=== PATIENT | female | born 1985 | race Caucasian/White ===

== ENCOUNTER 2018-06-23 05:00 | Inpatient (IN) | payer BC, SELFPAY ==
[2018-06-17 09:17] VITALS: BMI 37.2
[2018-06-23] VITALS (21 sets, daily range): BP systolic 92–115; BP diastolic 41–70; PULSE 54–85; RESP 16–18; TEMP 36.1–37.1; O2SAT 95–99; BMI 37.4
[2018-06-23] MEDS: Lactated Ringers 1,000 ML 999 ML IV (05:55)
[2018-06-23 06:15] LABS: Absolute Lymphocyte Count 1.77 X10^3/ul (0.83-4.51); Absolute Neutrophil Count 7.7 X10^3/uL (2.0-7.7); Basophil# 0.02 X10^3/uL; Basophil% 0.2 % (0-1); Eosinophil# 0.11 X10^3/uL; Hematocrit 36.7 % (37-47); Hemoglobin 12.5 g/dl (12.0-15.0); Lymphocyte # 1.77 X10^3/ul (4.0); Lymphocyte % 16.8 % (19-41); Mean Corp Hgb Conc 34.1 g/gl (32-36); Mean Corpuscular Hgb 31.7 pg (27.0-32.0); Mean Corpuscular Volume 93.1 fL (81-99); Mean Platelet Vol. 9.8 fl (6.2-12.0); Monocyte# 0.93 X10^3/uL; Monocyte% 8.8 % (0-10); Neutrophil # 7.65 X10^3/uL (2.7-7.7); Neutrophil % 72.9 % (47-70); Platelet Count 196 K/mm3 (150-450); RBC Distribution Width CV 13.2 % (11.6-14.6); RBC Distribution Width SD 44.5 fl (35.1-43.9); Red Blood Count 3.94 M/mm3 (4.2-5.4); White Blood Count 10.5 K/mm3 (4.4-11.0)
[2018-06-23 06:17] LABS: POSITIVE COUNT NO; POSITIVE DIFFERENTIAL NO; POSITIVE MORPHOLOGY NO
[2018-06-23] MEDS: Lactated Ringers 1,000 ML 150 ML IV (06:57)
[2018-06-23] MEDS: Sodium Citrate/Citric Acid 30 ML UDC PO (07:43)
[2018-06-23] MEDS: Cefazolin 2 GM in 0.9% Normal Saline 100 ML IV (07:45)
[2018-06-23] MEDS: Oxytocin 30 units/NS 500 ml 30 UNITS/500 ML IV.SOLN 167 UNITS IV (08:17)
[2018-06-23] MEDS: Ketorolac 30 MG/ML Syringe IV ×3 (08:30→21:05)
--- NOTE | 2018-06-23 08:46 | OP.PCM_ITS ---
Delivery Classification: Scheduled Final AMINTA Source: US <20 weeks Indications for : Repeat Elective Description of Procedure: The patient was taken to the operating room. She was prepped and draped in the dorsal supine position with a leftward tilt. A Pfannenstiel skin incision was made approximately 2 cm above the symphysis pubis and carried through to underlying layer fascia with the scalpel. The fascia was incised incised in the midline and extended laterally with the Huynh scissors. The fascia was dissected off the rectus muscles with blunt and sharp dissection. The rectus muscles were in the midline and the peritoneum was entered bluntly. The peritoneal incision was stretched and the bladder blade was placed. The uterine incision was made in a low transverse fashion with the scalpel and extended superiorly and inferiorly with blunt dissection. The amniotic membranes were ruptured bluntly and clear amniotic fluid returned. The ' s head was brought to the incision in the flexed position and delivered without difficulty. The remainder of the was delivered with gentle traction and fundal pressure in the standard fashion. The mouth and nares were bulb suctioned. The cord was clamped and cut as the infant was stimulated. Cord clamping was delayed. The infant was handed off to the waiting nursing staff. The placenta was delivered with fundal massage and gentle traction in the standard fashion. The uterus was exteriorized and cleared of all clots and debris. The cervix was dilated with a ring forcep. The uterine incision was closed with #1 Vicryl in a running locked fashion. A second layer of the same suture was used in an imbricating fashion and the incision was examined for hemostasis. The uterus was placed back into the peritoneal cavity and hemostasis was assured. The rectus muscles were examined and any bleeding was Bovie cauterized. The parietal peritoneum and rectus muscles were closed en bloc with a running 0 Vicryl suture. The rectus fascia was examined and the bleeding was Bovie cauterized and the rectus fascia was closed with #1 PDS suture in a running standard fashion. The subcutaneous tissue was examining and any bleeding was Bovie cauterized. The subcutaneous tissue was reapproximated with 3-0 Vicryl suture. The skin was closed in a subcuticular fashion by the PERFORMANCE ANALYST with me present in the labor and delivery suite. I performed the remainder of the procedure with assistance. All sponge, lap, and needle counts were correct. The patient was taken to her room for recovery in a stable condition. Amniotic Membrane Rupture Type: Artificial Amniotic Fluid Description: Clear Placenta Disposition: [facility] Specimen(s) sent to pathology: None Drain: Carrero to straight drain Fluids Replaced: 1700cc lr Cord Entanglement: None Cord Vessel Description: 3 Vessels Esitmated Blood Loss (ml): 600 cc Infant Gender: Female (1 minute): 8 (5 minute): 8 Delayed cord clamping: Yes Pre-op Antibiotic Given: Ancef 2 grams IV x1 Complications: None - Admit VTE Documentation VTE Present on Admission: No VTE Mechan Device Prophylaxis: SCD's VTE Pharm Prophylaxis ordered?: Yes
[2018-06-23] MEDS: Lactated Ringers 1,000 ML 100 ML IV ×2 (10:08→15:18)
--- NOTE | 2018-06-23 13:15 | NURSING ---
Received report from Holli Vasquez RN. I will assume care of patient at this time.
[2018-06-23] MEDS: 0.9% Saline Lock 10 ML Syringe IV (21:05)
[2018-06-23] MEDS: Senna/Docusate Sodium 1 Tablet PO (21:05)
[2018-06-24] VITALS (8 sets, daily range): BP systolic 101–123; BP diastolic 58–71; PULSE 59–75; RESP 16–18; TEMP 36.3–36.8; O2SAT 95–98
[2018-06-24] MEDS: 0.9% Saline Lock 10 ML Syringe IV ×4 (03:03→21:29)
[2018-06-24] MEDS: Ketorolac 30 MG/ML Syringe IV ×4 (03:03→21:29)
[2018-06-24 05:15] LABS: Hematocrit 33.9 % (37-47); Hemoglobin 11.7 g/dl (12.0-15.0); Mean Corp Hgb Conc 34.5 g/gl (32-36); Mean Corpuscular Hgb 32.6 pg (27.0-32.0); Mean Corpuscular Volume 94.4 fL (81-99); Mean Platelet Vol. 9.8 fl (6.2-12.0); Platelet Count 173 K/mm3 (150-450); RBC Distribution Width CV 13.2 % (11.6-14.6); RBC Distribution Width SD 43.7 fl (35.1-43.9); Red Blood Count 3.59 M/mm3 (4.2-5.4); White Blood Count 12.1 K/mm3 (4.4-11.0)
[2018-06-24 05:26] LABS: Scan Indicated on CBC? Y/N NO
[2018-06-24] MEDS: Enoxaparin 40 MG/0.4 ML Syringe SC (06:22)
--- NOTE | 2018-06-24 08:44 | PCM.PN.OB ---
Subjective: pain well controlled, average lochia, no N/V - Physical Exam General: Alert, Cooperative, No apparent distress Abdomen: Soft, Distended, Tender - appropriately Skin: Incision - clean, dry and intact Vital Signs Temp Pulse Resp BP Pulse Ox 98 F 72 18 102/66 98 06/24/18 04:39 06/24/18 04:39 06/24/18 06:15 06/24/18 04:39 06/24/18 06:15 Oxygen Delivery Method Room Air Weight: 95.8 kg Body Mass Index (BMI) 37.4 Intake and Output for Last 24 Hours 06/22/18 06/23/18 06/24/18 23:59 23:59 23:59 Intake Total 4895 / 4895 1200 / 1200 Output Total 1700 / 1700 1999 / 1999 Balance 3195 / 3195 -800 / -800 Laboratory Tests Past 24 Hrs 06/24/18 05:00 WBC 12.1 H RBC 3.59 L Hgb 11.7 L Hct 33.9 L MCV 94.4 MCH 32.6 H MCHC 34.5 RDW 13.2 RDW Differential 43.7 Plt Count 173 MPV 9.8 Medical Necessity - Tobacco Use Smoking Status: Never smoker Assessment/Plan POD#1 doing well routine care
[2018-06-24] MEDS: Senna/Docusate Sodium 1 Tablet PO ×2 (11:40→22:37)
[2018-06-25] MEDS: Ketorolac 30 MG/ML Syringe IV (01:52)
[2018-06-25] MEDS: 0.9% Saline Lock 10 ML Syringe IV (01:52)
[2018-06-25 02:00] VITALS: BP 137/66; PULSE 16; RESP 69; TEMP 36.5; O2SAT 95
[2018-06-25] MEDS: Enoxaparin 40 MG/0.4 ML Syringe SC (06:35)
[2018-06-25 07:45] VITALS: BP 116/77; PULSE 70; RESP 16; TEMP 36.8; O2SAT 96
--- NOTE | 2018-06-25 08:16 | PCM.PN.OB ---
Subjective: pain well controlled, not taking oxycodone. +BM. Perla. regular diet. Average lochia - Physical Exam General: Alert, Cooperative, No apparent distress Vital Signs Temp Pulse Resp BP Pulse Ox 98.3 F 70 16 116/77 96 06/25/18 07:45 06/25/18 07:45 06/25/18 07:45 06/25/18 07:45 06/25/18 07:45 Oxygen Delivery Method Room Air Weight: 95.8 kg Body Mass Index (BMI) 37.4 Intake and Output for Last 24 Hours 06/23/18 06/24/18 06/25/18 23:59 23:59 23:59 Intake Total 4895 / 4895 1200 / 1200 Output Total 1700 / 1700 2400 / 2400 Balance 3195 / 3195 -1200 / -1200 Medical Necessity - Tobacco Use Smoking Status: Never smoker Assessment/Plan PPD#2 doing well ready for d/c postop instructions reviewed infant and doing well
--- NOTE | 2018-06-25 08:24 | DCINST_ITS ---
Discharge Diet: No Restrictions Discharge Activity: Return to Normal Activity, May Not Drive - for 2 weeks, May not drive while taking narcotic pain medications., May Shower, May Take a Tub Bath - in 7 days. May resume sexual activity in: 4-6 weeks Lifting Restrictions: 20 pounds Additional Activity Instructions:: Nothing in the vagina for 4-6 weeks. You may return to work/school in 6 weeks. Call your doctor if your incision/area has: Continuous Slow Oozing, Sudden Increased Bleeding, Increased Pain/ Swelling, Increased Redness, Foul Smelling Discharge Call your doctor if you observe: Fever of 101 or Higher, Using more than one pad per hour - for 2 hours Suture Line Care: Avoid Pulling/Pushing, Avoid Pinching/Bending Cleanse incision/area with: Keep Dressing Clean & Dry Additional Instructions: If you experience any of the following, contact your healthcare provider. * Bleeding that soaks a pad every hour for 2 hours * Fever 100.4 or higher * Unrelieved incision or abdominal pain * Swelling, redness, discharge or bleeding from your incision or episiotomy site * Your incision begins to separate * Problems urinating (including inability to urinate or burning while urinating) . * Visual changes * Severe headache * Flu-like symptoms * Pain or redness in one of both of your breasts * Pain, warmth, tenderness or swelling in your legs, especially the calf area * Frequent nausea and vomiting * Symptoms of depression or anxiety If you experience any of the following, call 911 or go to the nearest Emergency Room. * Chest pain * Problems breathing * Seizure activity * Partial or complete paralysis of a body part, slurred speech, weakness or drooping of the face, or a sudden inability to walk or hold your balance Allergies/Adverse Reactions: Allergies No Known Allergies Allergy (Verified 06/23/18 11:43) Medications to take at Discharge Calcium Carb/Vitamin D [Caltrate-600 With Vit D Tab] 1 tab PO DAILY@799 Ferrous Sulfate 65 mg PO DAILY@79906/17/18 Nis489/FA/Omega3/Dha/Fish Oil [ Gummies] 1 each PO 06/17/18 Ibuprofen [Motrin] 800 mg PO TID PRN PRN #60 tablet 06/25/18 Oxycodone HCl/Acetaminophen [Percocet 5-325] 1 - 2 tablet PO Q8 PRN 5 Days #10 tablet 06/25/18 The following prescriptions were given: Ibuprofen [Motrin] 800 mg PO TID PRN PRN #60 tablet PRN Reason: Pain Oxycodone HCl/Acetaminophen [Percocet 5-325] 1 - 2 tablet PO Q8 PRN 5 Days #10 tablet PRN Reason: Moderate-Severe pain Follow-Up: Call to make an appointment with your doctor for an incision check in 1-2 weeks. You will also need a 6 week post- follow up appointment. Test results from this visit will be discussed in further detail at your follow- up appointment, if applicable. Please Follow Up With: Catrachita Okeefe MD - Call to make an appointment for an incision check in 1-2 [phone] When: You will need a post check in 6 weeks. Primary Care Physician: Gomez Goss DO [Primary Care Provider] -
--- NOTE | 2018-06-25 08:25 | PCM.DC.SUM ---
Discharge Date and Diagnosis Date of Admission: 06/23/18 Date of Discharge: 06/25/18 Hospital Course and Treatment Operations: - - Repeat low transverse section Via Pfannenstiel skin incision Procedures: None Summary of Care Provided: 33-year-old 2 para 1 admitted at 39 weeks gestation for repeat section. It was performed without difficulty. By postoperative day #2 she was ambulating, urinating quality. The was breast-feeding doing well. She did desire discharge home. Routine prescriptions and instructions were given. [] Discharge Diet: No Restrictions Discharge Activity: Return to Normal Activity, May Not Drive - for 2 weeks, May not drive while taking narcotic pain medications., May Shower, May Take a Tub Bath - in 7 days. May resume sexual activity in: 4-6 weeks Additional Activity Instructions:: Nothing in the vagina for 4-6 weeks. You may return to work/school in 6 weeks. Call your doctor if your incision/area has: Continuous Slow Oozing, Sudden Increased Bleeding, Increased Pain/ Swelling, Increased Redness, Foul Smelling Discharge Call your doctor if you observe: Fever of 101 or Higher, Using more than one pad per hour - for 2 hours Suture Line Care: Avoid Pulling/Pushing, Avoid Pinching/Bending Cleanse incision/area with: Keep Dressing Clean & Dry Home Medications: Medications to take at Discharge Calcium Carb/Vitamin D [Caltrate-600 With Vit D Tab] 1 tab PO DAILY@79906/17/18 Ferrous Sulfate 65 mg PO DAILY@79906/17/18 Fvt163/FA/Omega3/Dha/Fish Oil [ Gummies] 1 each PO 06/17/18 Ibuprofen [Motrin] 800 mg PO TID PRN PRN #60 tablet 06/25/18 Oxycodone HCl/Acetaminophen [Percocet 5-325] 1 - 2 tablet PO Q8 PRN 5 Days #10 tablet 06/25/18 Following Prescrptions Were Given to Patient: Ibuprofen [Motrin] 800 mg PO TID PRN PRN #60 tablet PRN Reason: Pain Oxycodone HCl/Acetaminophen [Percocet 5-325] 1 - 2 tablet PO Q8 PRN 5 Days #10 tablet PRN Reason: Moderate-Severe pain Primary Care Physician: Gomez Goss DO [Primary Care Provider] - Please Follow Up With: Catrachita Okeefe MD - Call to make an appointment for an incision check in 1-2 [phone] When: You will need a post check in 6 weeks. Medical Necessity - Tobacco Use Smoking Status: Never smoker Meaningful Use Info Meaningful Use Diagnoses (Choose all that apply): None applicable
--- NOTE | 2018-07-01 16:34 | NURSING ---
no answer on follow up phone call
== END 2018-06-25 10:05 | disposition home or self-care (01) | DRG 766 ==
PROVIDERS: Admitting Provider Obstetrics & Gynecology; Family Provider Student in an Organized Health Care Education/Training Program; PCP Student in an Organized Health Care Education/Training Program; Visit Provider Obstetrics & Gynecology
PROC: 10D00Z1 Extraction of Products of Conception, Low, Open Approach (ICD-10-PCS; CPT 59514; principal; 2018-06-23 07:15)
DX: O34.211 Maternal care for low transverse scar from previous cesarean delivery (principal); Z3A.39 39 weeks gestation of pregnancy; Z37.0 Single live birth
CPT/HCPCS: 85025; 85027; 86850; 86900; 99218; J7120; A4216; G0378; J2405